=== PATIENT | male | born 1950 | race Caucasian/White ===

== ENCOUNTER 2018-02-12 20:05 | Emergency (ER) | payer MEDICARE ==
[2018-02-12 20:05] VITALS: BMI 23.6
[2018-02-12 20:11] VITALS: RESP 18; TEMP 98.2; O2SAT 98
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
[2018-02-13 03:05] VITALS: BP 136/84; PULSE 89
== END 2018-02-12 22:48 | disposition home or self-care (01) ==
LOC: H.ER 20:05
DX: F10.129 Alcohol abuse with intoxication, unspecified (principal); Y90.8 Blood alcohol level of 240 mg/100 ml or more
CPT/HCPCS: 82948; 99283; G0480